=== PATIENT | female | born 1965 | race Caucasian/White ===

== ENCOUNTER → 2016-06-26 | Outpatient (CLI) | payer OTHER ==
--- NOTE | ~2016-06-26 | MY11 ---
[facility] A Service of [facility] RADIOLOGY TEXT RESULTS PATIENT: HUA DACOSTA LOCATION: [facility] : 69 UNIT #: [id number] AGE: [address]: Slime Sutton APRN SEX: F ORDER DR: [id number] [facility] [address] [place], [place] [address] [id number] O MR#: [id number] Acc #: [id number] NAME: HUA DACOSTA : 1965 SEX: F STUDY DATE/TIME: 06/26/2016 14:35 UNIT: [facility] ROOM: STUDY DESCRIPTION: MY Mammogram Screening Dig Fidel Attending Physician: Tisha Sutton A.P.R.N. Ordering Physician: Staff Doctor Not On Primary Care Physician: Tisha Sutton A.P.R.N. MEDICAL IMAGING REPORT This report is preliminary unless electronic signature is present EXAM Digital screening mammogram. DATE OF EXAM 06/26/[address] [facility]. HISTORY 50-year-old woman no risk elevation, previous breast biopsy. Annual screen. COMPARISON Comparison outside mammograms now available, date to 10/27/2011 with most recent 03/19/2015, with followup left breast imaging 03/23/2015. TECHNIQUE Digital imaging of each breast was completed utilizing screening protocol. Review includes FDA-approved CAD device. FINDINGS Breast parenchyma is moderately dense with scattered small nodular parenchymal pattern bilaterally. Mild nodular dominance projects lower anterior third right breast. I see no suspicious mass characteristics. There are no interval occurring microcalcifications and no suspicious architectural deformity. IMPRESSION Benign mammogram. Annual screening recommended. BIRADS 2. Patients over the age of 40 are entered into a reminder system with target due date for the next mammogram. A result letter will also be sent to the [facility] A Service of [facility] RADIOLOGY TEXT RESULTS PATIENT: HUA DACOSTA LOCATION: [facility] : 69 UNIT #: [id number] AGE: [address]: [place],Slime L PROOFER SEX: F ORDER DR: patient. BIRADS: 2 Benign findings. Dictated by... Patrick Tang M.D. THIS IS AN ELECTRONICALLY VERIFIED REPORT Patrick Tang M.D. at 06/30/2016 8:27 AM CRYS/roshan TD: 06/29/2016 16:32 JOB #: [id number] MEDICAL IMAGING REPORT Page 1 of 1 COPY
== END | disposition home or self-care (01) ==
LOC: CWCC 14:05
DX: Z12.31 Encounter for screening mammogram for malignant neoplasm of breast (principal)
CPT/HCPCS: G0202